=== PATIENT | female | born 1955 | race American Indian/Alaskan Native ===

== ENCOUNTER 2018-03-11 15:48 | Emergency (ER) | payer MEDICARE ==
[2018-03-11 16:05] VITALS: BP 130/63
--- NOTE | 2018-03-11 17:02 | Emergency Department Report ---
ED Female HPI - General Chief complaint: Urogenital-Female Stated complaint: LOWER ABD PAIN Time Seen by Provider: 03/11/18 16:46 Source: EMS Mode of arrival: Ambulatory Limitations: No Limitations - History of Present Illness Initial comments: This is a 63-year-old -[place] female who presents with pelvic pain for 2 weeks. Patient reports it feels like something is dropping. She was lifting furniture at her home 2 weeks ago and shortly afterwards started feeling vaginal pressure. She went to see her primary care provider at [facility] last week and they told her not to worry about it because it may be related to age.She has had frequency and urgency without tissue repair. Denies low back pain, vaginal bleeding or discharge, and fever. MD Complaint: pelvic pain -: week(s) (2 weeks) Location: suprapubic Radiation: non-radiating Severity: moderate Severity scale (0 -10): 6 Quality: aching, other (pressure) Consistency: constant Improves with: other (sitting) Worsens with: urination, movement Are you Now?: No Associated Symptoms: denies: vaginal discharge, vaginal bleeding, abdominal pain , nausea/vomiting, fever/chills, headaches, loss of appetite, dysuria, hematuria , rash, seizure, shortness of breath, syncope, weakness - Related Data Previous Rx's Medication Instructions Recorded Last Taken Type Aspirin [Aspirin TAB] 325 mg PO QDAY #30 tablet 03/26/14 Unknown Rx Clopidogrel [Plavix] 75 mg PO QDAY #30 tablet 03/26/14 Unknown Rx ISOSORBIDE MONOnitrate [Imdur] 60 mg PO QDAY #30 tab.er.24h 03/26/14 Unknown Rx Lisinopril [Zestril TAB] 5 mg PO QDAY #30 tablet 03/26/14 Unknown Rx Metoprolol [Lopressor TAB] 25 mg PO BID #60 tablet 03/26/14 Unknown Rx Rosuvastatin (Nf) [Crestor] 10 mg PO QHS #30 tablet 03/26/14 Unknown Rx traMADol [Ultram 50 MG tab] 50 mg PO Q6HR PRN #15 tablet 03/11/18 Unknown Rx Allergies Allergy/AdvReac Type Severity Reaction Status Date / Time No Known Allergies Allergy Unverified 08/07/13 12:39 ED Review of Systems ROS: Stated complaint: LOWER ABD PAIN Other details as noted in HPI Constitutional: denies: chills, fever Respiratory: denies: cough, shortness of breath, wheezing Cardiovascular: denies: chest pain, palpitations Gastrointestinal: abdominal pain (suprapubic pressure). denies: nausea, vomiting, diarrhea, constipation Genitourinary: urgency, frequency. denies: dysuria, discharge Musculoskeletal: denies: back pain, joint swelling, arthralgia Neurological: denies: headache, weakness, paresthesias Psychiatric: denies: anxiety, depression ED Past Medical Hx - Past Medical History Hx Hypertension: Yes Hx Heart Attack/AMI: Yes Hx Congestive Heart Failure: No Hx Diabetes: Yes Hx Asthma: No Hx COPD: No Hx HIV: No - Surgical History Hx Open Heart Surgery: Yes (CABG 1997) Hx Cholecystectomy: No Hx Appendectomy: No Hx Breast Surgery: No - Social History Smoking Status: Never Smoker Substance Use Type: None - Medications Home Medications: Home Medications Medication Instructions Recorded Confirmed Last Taken Type Aspirin [Aspirin TAB] 325 mg PO QDAY #30 tablet 03/26/14 Unknown Rx Clopidogrel [Plavix] 75 mg PO QDAY #30 tablet 03/26/14 Unknown Rx ISOSORBIDE MONOnitrate [Imdur] 60 mg PO QDAY #30 tab.er.24h 03/26/14 Unknown Rx Lisinopril [Zestril TAB] 5 mg PO QDAY #30 tablet 03/26/14 Unknown Rx Metoprolol [Lopressor TAB] 25 mg PO BID #60 tablet 03/26/14 Unknown Rx Rosuvastatin (Nf) [Crestor] 10 mg PO QHS #30 tablet 03/26/14 Unknown Rx traMADol [Ultram 50 MG tab] 50 mg PO Q6HR PRN #15 tablet 03/11/18 Unknown Rx ED Physical Exam - General Limitations: No Limitations General appearance: alert, in no apparent distress - Respiratory Respiratory exam: Present: normal lung sounds bilaterally. Absent: respiratory distress - Cardiovascular Cardiovascular Exam: Present: regular rate, normal rhythm, normal heart sounds. Absent: systolic murmur, diastolic murmur, rubs, gallop - GI/Abdominal GI/Abdominal exam: Present: soft, normal bowel sounds. Absent: organomegaly, mass - External exam: Present: normal external exam Bi-manual exam: Present: other (visualized pelvic organs, ). Absent: cervical motion tendernes, adnexal tenderness, adnexal mass ED Course Vital Signs 03/11/18 16:01 Temperature 98.2 F Pulse Rate 67 Respiratory 20 Rate Blood Pressure 130/63 O2 Sat by Pulse 98 Oximetry ED Medical Decision Making - Medical Decision Making This is a 63-year-old female who presents with pelvic pressure, frequency, and urgency for 2 weeks. Patient was examined by me. Vitals are stable and in no acute distress. Susceptible of prolapsed bladder. Discharged home in stable condition. Referral to CVICU NURSE. Start tramadol 50 mg by mouth every 6 hours when necessary for discomfort. Discussed prevention options. Follow-up with [facility] for further management. Critical care attestation.: If time is entered above; I have spent that time in minutes in the direct care of this critically ill patient, excluding procedure time. ED Disposition Clinical Impression: Prolapsed bladder, Pelvic pain in female Disposition: TO HOME OR SELFCARE Is pt being admited?: No Does the pt Need Aspirin: No Condition: Stable Additional Instructions: Follow-up with CVICU NURSE within the next week for further evaluation. Review have gout given on pelvic organ prolapse. Follow-up with your primary care provider in 2-3 days. Prescriptions: traMADol [Ultram 50 MG tab] 50 mg PO Q6HR PRN #15 tablet PRN Reason: Pain Referrals: [facility] [Other] - 3-5 Days Kristen Doyle [Other] - 3-5 Days [facility] [Provider Group] - 3-5 Days [facility] [Provider Group] - 3-5 Days Time of Disposition: 17:56 Print Language: MONGOLIAN
[2018-03-11 17:52] LABS: Bacteria,Urine 2+ /HPF (Negative); Bilirubin,Urine NEG (Negative); Blood,Urine MOD (Negative); Color,Urine Yellow (Yellow); Hyaline Casts,Urine 10 /LPF; Mucus,Urine 1+ /HPF
== END 2018-03-11 18:25 | disposition home or self-care (01) ==
LOC: ED 15:48
DX: N81.2 Incomplete uterovaginal prolapse (principal); R10.2 Pelvic and perineal pain; I10 Essential (primary) hypertension; I25.2 Old myocardial infarction; E11.9 Type 2 diabetes mellitus without complications; Z95.5 Presence of coronary angioplasty implant and graft; Z79.82 Long term (current) use of aspirin
CPT/HCPCS: 81001; 99284

== ENCOUNTER 2018-03-20 21:36 | Emergency (ER) | payer MEDICARE ==
[2018-03-20 21:54] VITALS: BP 174/64
[2018-03-20 22:33] LABS: Hemoglobin 12.7 gm/dl (10.1-14.3); Mean Corpuscular HGB Conc 34 % (30-34); Mean Corpuscular Hemoglobin 31 pg (28-32); Mean Corpuscular Volume 94 fl (79-97); Platelet Count 254 K/mm3 (140-440); Red Blood Count 4.05 M/mm3 (3.65-5.03); Red Cell Distribution Width 13.3 % (13.2-15.2)
[2018-03-20 22:51] LABS: BUN/Creatinine Ratio 18; Blood Urea Nitrogen 14 mg/dL (7-17); Calcium 10.3 mg/dL (8.4-10.2); Hemolysis Index 1; Uric Acid 8.5 mg/dL (3.5-7.6)
[2018-03-21] MEDS ORDERED: TORADOL IM ONE (02:30)
[2018-03-21] MEDS ORDERED: NORCO 5/325 ONE (02:30)
[2018-03-21] MEDS ORDERED: DECADRON IM ONE (02:30)
[2018-03-21] MEDS ORDERED: TORADOL ONE (02:30)
[2018-03-21] MEDS ORDERED: DECADRON ONE (02:30)
[2018-03-21] MEDS ORDERED: NORCO 5/325 PO ONE (02:31)
--- NOTE | 2018-03-21 02:32 | Emergency Department Report ---
ED Extremity Problem HPI - General Chief complaint: Extremity Injury, Lower Stated complaint: RT FOOT PAIN Time Seen by Provider: 03/21/18 02:27 Source: patient Mode of arrival: Ambulatory Limitations: No Limitations - History of Present Illness Initial comments: 63-year-old -[place] female with a past medical history of hypertension gout and diabetes comes in reporting that her right foot is swollen and painful. Patient denies any injury reports that as her gout is flaring up. Patient reports that she was recently seen by a provider and is being treated for a urinary tract infection. -: days(s) (1) Location: right, other (foot) History of Same: Yes -: Yes myalgia, Yes arthralgia Radiation: none Severity scale (0 -10): 10 Quality: burning, stabbing, aching Consistency: constant Improves with: nothing Worsens with: weight bearing, palpation - Related Data Previous Rx's Medication Instructions Recorded Last Taken Type Aspirin [Aspirin TAB] 325 mg PO QDAY #30 tablet 03/26/14 Unknown Rx Clopidogrel [Plavix] 75 mg PO QDAY #30 tablet 03/26/14 Unknown Rx ISOSORBIDE MONOnitrate [Imdur] 60 mg PO QDAY #30 tab.er.24h 03/26/14 Unknown Rx Lisinopril [Zestril TAB] 5 mg PO QDAY #30 tablet 03/26/14 Unknown Rx Metoprolol [Lopressor TAB] 25 mg PO BID #60 tablet 03/26/14 Unknown Rx Rosuvastatin (Nf) [Crestor] 10 mg PO QHS #30 tablet 03/26/14 Unknown Rx traMADol [Ultram 50 MG tab] 50 mg PO Q6HR PRN #15 tablet 03/11/18 Unknown Rx Diclofenac Sodium 50 mg PO BID #20 tablet. 03/21/18 Unknown Rx predniSONE [Deltasone] 20 mg PO QDAY 4 Days #4 tab 03/21/18 Unknown Rx Allergies Allergy/AdvReac Type Severity Reaction Status Date / Time No Known Allergies Allergy Unverified 08/07/13 12:39 ED Review of Systems ROS: Stated complaint: RT FOOT PAIN Other details as noted in HPI Musculoskeletal: joint swelling (right foot), arthralgia (right foot) ED Past Medical Hx - Past Medical History Hx Hypertension: Yes Hx Heart Attack/AMI: Yes Hx Congestive Heart Failure: No Hx Diabetes: Yes Hx Asthma: No Hx COPD: No Hx HIV: No Additional medical history: gout flare up - Surgical History Hx Open Heart Surgery: Yes (CABG 1997) Hx Cholecystectomy: No Hx Appendectomy: No Hx Breast Surgery: No - Social History Smoking Status: Never Smoker Substance Use Type: None - Medications Home Medications: Home Medications Medication Instructions Recorded Confirmed Last Taken Type Aspirin [Aspirin TAB] 325 mg PO QDAY #30 tablet 03/26/14 Unknown Rx Clopidogrel [Plavix] 75 mg PO QDAY #30 tablet 03/26/14 Unknown Rx ISOSORBIDE MONOnitrate [Imdur] 60 mg PO QDAY #30 tab.er.24h 03/26/14 Unknown Rx Lisinopril [Zestril TAB] 5 mg PO QDAY #30 tablet 03/26/14 Unknown Rx Metoprolol [Lopressor TAB] 25 mg PO BID #60 tablet 03/26/14 Unknown Rx Rosuvastatin (Nf) [Crestor] 10 mg PO QHS #30 tablet 03/26/14 Unknown Rx traMADol [Ultram 50 MG tab] 50 mg PO Q6HR PRN #15 tablet 03/11/18 Unknown Rx Diclofenac Sodium 50 mg PO BID #20 tablet. 03/21/18 Unknown Rx predniSONE [Deltasone] 20 mg PO QDAY 4 Days #4 tab 03/21/18 Unknown Rx ED Physical Exam - General Limitations: No Limitations General appearance: alert, in no apparent distress - Head Head exam: Present: atraumatic, normocephalic - ENT ENT exam: Present: mucous membranes moist - Respiratory Respiratory exam: Present: normal lung sounds bilaterally. Absent: respiratory distress - Cardiovascular Cardiovascular Exam: Present: regular rate, normal rhythm. Absent: systolic murmur, diastolic murmur, rubs, gallop - Expanded Lower Extremity Exam Right Hip exam: Present: full ROM Upper Leg exam: Present: full ROM Knee exam: Present: normal inspection Lower Leg exam: Present: full ROM. Absent: tenderness, swelling Ankle exam: Present: full ROM, swelling. Absent: tenderness Foot/Toe exam: Present: tenderness, swelling. Absent: abrasion, laceration, ecchymosis, deformity, erythema, puncture wound - Neurological Exam Neurological exam: Present: alert, oriented X3 - Psychiatric Psychiatric exam: Present: normal affect, normal mood - Skin Skin exam: Present: warm, intact ED Course Vital Signs 03/20/18 21:50 Temperature 98.1 F Pulse Rate 68 Respiratory 18 Rate Blood Pressure 174/64 O2 Sat by Pulse 99 Oximetry - Reevaluation(s) Reevaluation #1: 03/21/18 03:06 Patient reports she feels better since having her injections of medication. ED Medical Decision Making - Lab Data Result diagrams: 03/20/18 22:16 03/20/18 22:16 - Medical Decision Making Patient has been evaluated by this provider fast track. Discussed patient I will order her dexamethasone 4 mg IM, Toradol 30 mg IM and [place] 5 mg by mouth Discussed patient I will discharge her on a Medrol Dosepak in indomethacin for pain. I discussed patient she needs to increase her water intake by 2 L a day. She needs to check her blood sugar daily as the prednisone which is a steroid can increase her blood sugars. Patient verbalized understanding. Critical care attestation.: If time is entered above; I have spent that time in minutes in the direct care of this critically ill patient, excluding procedure time. ED Disposition Clinical Impression: Gout Qualifiers: Gout site: foot Encounter type: initial encounter Chronicity: acute Laterality : right Disposition: DC-01 TO HOME OR SELFCARE Is pt being admited?: No Does the pt Need Aspirin: No Condition: Stable Instructions: Acute Gouty Arthritis (ED), Low Purine Diet (ED) Additional Instructions: Please taking medication as prescribed. If your symptoms persist or gets worse please follow up with her primary care provider. Prescriptions: Diclofenac Sodium 50 mg PO BID #20 tablet. predniSONE [Deltasone] 20 mg PO QDAY 4 Days #4 tab Referrals: PRIMARY CARE, [Primary Care Provider] - 3-5 Days your,Provider [Other] - 3-5 Days
== END 2018-03-21 03:05 | disposition home or self-care (01) ==
LOC: ED 21:36
DX: M10.9 Gout, unspecified (principal); M79.671 Pain in right foot; I10 Essential (primary) hypertension; I25.2 Old myocardial infarction; E11.9 Type 2 diabetes mellitus without complications; Z95.1 Presence of aortocoronary bypass graft; Z79.82 Long term (current) use of aspirin
CPT/HCPCS: 36415; 80048; 84550; 85027; 96372; 99283; J1100; J1885